=== PATIENT | female | born 1960 | race Caucasian/White ===

== ENCOUNTER 2020-02-02 11:44 | Emergency (ER) | payer BC ==
[2020-02-02] MEDS ORDERED: Magnesium Citrate 300 ML BOT ONE (12:55)
--- NOTE | 2020-02-02 18:33 | RAD ---
ACUTE ABDOMEN SERIES: Date: 02-02-2020 FINDINGS: There is a large amount of fecal material in the colon but no overt obstruction. Pelvic calcification s appear to be phleboliths. It is difficult to assess the left renal shadow with overlapping bowel. I believe all of the shadows I see here most likely related to bowel than to that kidney. There is no free air beneath the diaphragm. The chest film shows the heart to be upper normal in size. The lungs are clear with no acute infiltrate or effusion. There is some linear streaking in the bases that is p robably scarring or atelectasis. IMPRESSION: Mild constipation. POS: HOME
== END 2020-02-02 13:00 | disposition home or self-care (01) ==
LOC: BURERS 11:44
DX: K59.00 Constipation, unspecified (principal); Z79.899 Other long term (current) drug therapy; Z79.891 Long term (current) use of opiate analgesic
CPT/HCPCS: 74022